=== PATIENT | female | born 1995 | race Caucasian/White ===

== ENCOUNTER 2019-01-14 16:09 | Emergency (ER) | payer BC, MEDICAID, SELFPAY ==
[~2019-01-14] VITALS: Ht 152.4 cm; Wt 49.0 kg
[2019-01-14 16:10] VITALS: BP 149/95
[2019-01-14] MEDS ORDERED: LIDOCAINE 1% SDV 5 ML VIAL DILUENT ONE (17:15)
[2019-01-14] MEDS ORDERED: cefTRIAXone SOD 250 MG VIAL (J0696) IM ONE (17:15)
[2019-01-14] MEDS ORDERED: AZITHROMYCIN 250 MG TAB PO ONE (17:15)
[2019-01-14] MEDS ORDERED: AUGM875T28 PO (17:47)
[2019-01-14] MEDS ORDERED: FLAG500T PO (17:47)
[2019-01-14 19:01] LABS: CHLAMYDIA DNA AMPLIFICATION NEGATIVE (NEGATIVE); GC DNA AMPLIFICATION NEGATIVE (NEGATIVE)
[2019-01-16 10:02] LABS: HEPATITIS B SURFACE ANTIBODY NEGATIVE (POSITIVE); HEPATITIS B SURFACE ANTIGEN NEGATIVE (NEGATIVE); HEPATITIS C VIRUS ABY INDEX 0.1 INDEX (<0.8); HIV 1&2 SCREEN CENTAUR NEGATIVE (NEGATIVE)
== END 2019-01-14 17:57 | disposition home or self-care (01) ==
LOC: M ED 16:09
DX: N76.0 Acute vaginitis (principal); H66.002 Acute suppurative otitis media without spontaneous rupture of ear drum, left ear; J30.89 Other allergic rhinitis; F17.210 Nicotine dependence, cigarettes, uncomplicated
CPT/HCPCS: 36415; 81001; 84702; 86706; 86780; 86803; 87086; 87210; 87340; 87389; 87661; 96372; 99282; J0696

== ENCOUNTER 2023-06-15 21:08 | Inpatient (IN) | payer MEDICAID, OTHER, SELFPAY ==
[~2023-06-15] VITALS: Ht 152.4 cm; Wt 56.7 kg
[~2023-06-15 21:08] MED LIST: AUGM875T28 PO; BUPR8SUB SL; COLA100C5 PO; FLAG500T PO; IBUP80TA PO; PERCOCET PO; PRENTAB9 PO; SUBO8MIS SL
[2023-06-15] MEDS ORDERED: FLUO-290 PO (22:17)
[2023-06-15] MEDS ORDERED: HOME MED LIST COMPLETE! XX SCH (22:20)
[2023-06-15 22:26] LABS: HEMATOCRIT 41.8 % (36.0-47.0); HEMOGLOBIN 14.3 g/dl (12.0-15.5); MEAN CORPUSCULAR HEMOGLOBIN 32.1 pg (27.0-33.0); MEAN CORPUSCULAR HGB CONC 34.2 g/dl (32.0-36.5); MEAN CORPUSCULAR VOLUME 93.7 fl (80.0-96.0); PLATELET COUNT, AUTOMATED 280 10^3/uL (150-450); RED BLOOD COUNT 4.46 10^6/uL (4.00-5.40); WHITE BLOOD COUNT 6.9 10^3/uL (4.0-10.0)
[2023-06-15 22:53] LABS: BARBITURATES URINE NEGATIVE (NEGATIVE); BENZODIAZEPINES URINE NEGATIVE (NEGATIVE); CANNABINOIDS URINE NEGATIVE (NEGATIVE); COCAINE METABOLITE URINE NEGATIVE (NEGATIVE); METHADONE URINE NEGATIVE (NEGATIVE); OPIATES URINE NEGATIVE (NEGATIVE); PHENCYCLIDINE URINE NEGATIVE (NEGATIVE)
[2023-06-15 22:54] LABS: ETHYL ALCOHOL (ETHANOL) 0.172 % (0.000-0.010)
[2023-06-15 22:55] LABS: HCG, SERUM QUALITATIVE NEGATIVE (NEGATIVE)
[2023-06-15 22:56] LABS: AMPHETAMINES LEVEL URINE POSITIVE (NEGATIVE)
[2023-06-15 22:56] LABS: ALBUMIN 3.8 G/DL (3.2-5.2); ALKALINE PHOSPHATASE 79 U/L (46-116); ALT/SGPT 19 U/L (7.0-40); AST/SGOT 31 U/L (<34); BILIRUBIN,DIRECT < 0.1 MG/DL (<0.4); BILIRUBIN,TOTAL 0.3 MG/DL (0.3-1.2); BLOOD UREA NITROGEN 17 MG/DL (9-23); CALCIUM LEVEL 8.8 MG/DL (8.5-10.1); CARBON DIOXIDE LEVEL 29 MMOL/L (20-31); CHLORIDE LEVEL 109 MMOL/L (98-107); GLOMERULAR FILTRATION RATE > 60.0 (>60); GLUCOSE, FASTING 76 MG/DL (60-100); POTASSIUM SERUM 4.3 MMOL/L (3.5-5.1); SALICYLATE LEVEL < 3.0 MG/DL (<30); SODIUM LEVEL 145 MMOL/L (136-145); TOTAL PROTEIN 6.6 G/DL (5.7-8.2)
[2023-06-15 22:59] LABS: THYROID STIMULATING HORMONE 3.268 uIU/ML (0.55-4.78)
[2023-06-16] MEDS ORDERED: ACETAMINOPHEN TAB 650MG DOSE (2X325MG) PO PRN (13:40)
[2023-06-16] MEDS ORDERED: MAALOX 30 ML SUSP *UDC PO PRN (13:40)
[2023-06-16] MEDS ORDERED: IBUPROFEN 400MG TAB PO PRN (13:40)
[2023-06-16] MEDS ORDERED: diphenhydrAMINE 25MG CAP PO PRN (13:40)
[2023-06-16] MEDS ORDERED: BUPRENORPHINE HCL 8MG SUBINGUAL TABLET SL SCH ×2 (14:00→16:00)
[2023-06-16] MEDS: BUPRENORPHINE HCL 8MG SUBINGUAL TABLET SL SCH (15:06)
[2023-06-16] MEDS: FLUoxetine 10 MG CAP PO SCH (15:06)
[2023-06-16] MEDS ORDERED: LORazepam 2 MG TAB PO PRN (16:20)
[2023-06-16 17:02] VITALS: BP 95/52; TEMP 98; O2SAT 98
[2023-06-16 17:08] VITALS: BP 95/52
[2023-06-16] MEDS: FOLIC ACID 1MG TAB PO SCH (17:54)
[2023-06-16] MEDS: THIAMINE 100 MG TAB PO SCH (17:54)
[2023-06-16] MEDS: MULTIVITAMINS/MINERALS THERAP 1 TAB PO SCH (17:54)
[2023-06-16] MEDS: NICOTINE 21MG/24HR 1 EA TRANSDERMAL TD PRN (19:12)
[2023-06-16] MEDS: traZODone 50 MG TAB PO PRN (20:24)
[2023-06-16 22:03] VITALS: BP 100/55
[2023-06-17 06:21] VITALS: BP 99/54
[2023-06-17 06:34] VITALS: BP 99/54; TEMP 98.2; O2SAT 100
[2023-06-17] MEDS ORDERED: HOME MED LIST COMPLETE! XX SCH (08:10)
[2023-06-17] MEDS: FLUoxetine 10 MG CAP PO SCH (08:18)
[2023-06-17] MEDS: busPIRone 5 MG TAB PO SCH (09:37)
[2023-06-17] MEDS: FLUoxetine 10 MG CAP PO ONE (09:37)
[2023-06-17] MEDS: INFLUENZA QUADRIVALENT PF VACCINE 0.5ML SYRINGE IM.IMMUN ONE (09:38)
[2023-06-17 15:00] VITALS: BP 106/60
[2023-06-17] MEDS: BUPRENORPHINE HCL 8MG SUBINGUAL TABLET SL SCH (16:31)
[2023-06-17 17:11] VITALS: BP 106/60; TEMP 98.7
[2023-06-17] MEDS: MOM 30ML SUSPENSION UDC PO PRN (18:03)
[2023-06-17] MEDS: DOCUSATE SODIUM 100MG CAPSULE PO ONE (20:50)
[2023-06-18 06:18] VITALS: BP 103/57; TEMP 97.2; O2SAT 100
[2023-06-18] MEDS: FLUoxetine 20MG CAP PO SCH (09:05)
[2023-06-18] MEDS: SENNA 8.6 MG TAB (SENOKOT) PO ONE (11:32)
[2023-06-18 18:39] VITALS: BP 110/68; TEMP 98.2
[2023-06-19 06:41] VITALS: BP 96/51; TEMP 98.6; O2SAT 97
[2023-06-19] MEDS ORDERED: NICO21PAT TD (08:00)
[2023-06-19] MEDS ORDERED: TRAZ-252 PO (08:00)
[2023-06-19] MEDS ORDERED: BUSP5TA PO (08:00)
[2023-06-19] MEDS ORDERED: FLUO20CA22 PO (08:00)
== END 2023-06-19 11:41 | disposition home or self-care (01) | DRG 751 ==
LOC: M ED 21:08 → M ED INP 06-16 13:38 → M PSY 06-16 17:01
PROVIDERS: ADMIT Student in an Organized Health Care Education/Training Program; ATTEND Student in an Organized Health Care Education/Training Program
DX: F32.1 Major depressive disorder, single episode, moderate (principal); R45.851 Suicidal ideations; F41.9 Anxiety disorder, unspecified; F43.81 Prolonged grief disorder; F14.90 Cocaine use, unspecified, uncomplicated; F17.290 Nicotine dependence, other tobacco product, uncomplicated; F15.90 Other stimulant use, unspecified, uncomplicated; R21 Rash and other nonspecific skin eruption; F10.90 Alcohol use, unspecified, uncomplicated; Z56.0 Unemployment, unspecified; Z62.810 Personal history of physical and sexual abuse in childhood; Z91.410 Personal history of adult physical and sexual abuse; Z81.4 Family history of other substance abuse and dependence; Z79.899 Other long term (current) drug therapy; Z91.010 Allergy to peanuts; Z11.52 Encounter for screening for COVID-19

== ENCOUNTER → 2023-10-14 | Outpatient (REF) | payer OTHER ==
[~2023-10-14] MED LIST changes: +BUSP5TA PO; +FLUO-290 PO; +FLUO-365 PO; +NICO21PAT TD; +TRAZ-252 PO
[2023-10-14 14:35] LABS: Trichomonas vaginalis (AMP) NOT DETECTED (NEGATIVE)
[2023-10-14 14:59] LABS: GC DNA AMPLIFICATION NEGATIVE (NEGATIVE)
== END ==
LOC: M SFHCWAGY 12:17
PROVIDERS: ATTEND Nurse Practitioner Family
DX: N93.9 Abnormal uterine and vaginal bleeding, unspecified (principal); N73.9 Female pelvic inflammatory disease, unspecified